=== PATIENT | male | born 1960 | race Caucasian/White ===

== ENCOUNTER → 2017-01-23 | Outpatient (CLI) | payer OTHER ==
[~2017-01-23] MED LIST: ANAPROX DS550 MG PO; ASPIRIN81 M1 PO; AUGMENTIN 875875 MG PO; AVPAK AZITHROM250 M1 PO; CLARITIN10 MG PO; CLINDAMYCIN HC300 MG PO; FLONASE ALLERG9.9 ML NAS; HYDROCODONE BIT1 T11 PO; LEVOFLOXACIN500 MG PO; MOTRIN PO; MOTRIN800 MG PO; PEN-VEE K500 MG PO; PENICILLIN VK500 MG PO; PREDNISONE10 MG PO; Peridex 473 ML473 ML PO; ROBAXIN750 MG PO; ROBITUSSIN DM 105 ML PO; TOBREX OPHTH S2.5 ML OPH; TRAMADOL HCL50 MG PO; TRIMOX500 MG PO; ULTRAM50 MG PO; VOLTAREN75 MG PO; ZITHROMAX Z PA250 MG PO
== END | disposition home or self-care (01) ==
LOC: RAD 10:06
DX: J44.1 Chronic obstructive pulmonary disease with (acute) exacerbation (principal); R06.02 Shortness of breath; Z87.891 Personal history of nicotine dependence

== ENCOUNTER 2017-05-13 16:17 | Emergency (ER) | payer OTHER ==
[~2017-05-13] VITALS: Ht 170.1 cm; Wt 59.0 kg
[2017-05-13] MEDS ORDERED: BREO ELLIPTA 21 EACH INH (16:23)
[2017-05-13] MEDS ORDERED: PROAIR HFA8.5 GM INH (16:23)
[2017-05-13] MEDS ORDERED: NORCO 10-325 T1 EACH PO (18:57)
== END 2017-05-13 19:12 | disposition home or self-care (01) ==
LOC: ED 16:17
DX: S39.012A Strain of muscle, fascia and tendon of lower back, initial encounter (principal); Z86.73 Personal history of transient ischemic attack (TIA), and cerebral infarction without residual deficits; Z88.6 Allergy status to analgesic agent; Z79.899 Other long term (current) drug therapy; X50.1XXA Overexertion from prolonged static or awkward postures, initial encounter; Y93.89 Activity, other specified; Y92.89 Other specified places as the place of occurrence of the external cause; Y99.8 Other external cause status

== ENCOUNTER 2017-09-24 08:05 | Emergency (ER) | payer OTHER ==
[~2017-09-24] VITALS: Ht 170.1 cm; Wt 58.1 kg
[~2017-09-24 08:05] MED LIST changes: +BREO ELLIPTA 21 EACH INH; +NORCO 10-325 T1 EACH PO; +PROAIR HFA8.5 GM INH
[2017-09-24] MEDS ORDERED: Motrin,Rufen800 MG PO (08:34)
[2017-09-24] MEDS ORDERED: CLINDAMYCIN150 MG PO (08:34)
[2017-09-24] MEDS ORDERED: NORCO 5-325 TA1 EACH PO (08:34)
== END 2017-09-24 08:36 | disposition home or self-care (01) ==
LOC: ED 08:05
DX: K08.89 Other specified disorders of teeth and supporting structures (principal); R68.84 Jaw pain; Z88.6 Allergy status to analgesic agent; Z79.899 Other long term (current) drug therapy; Z86.73 Personal history of transient ischemic attack (TIA), and cerebral infarction without residual deficits

== ENCOUNTER 2018-01-12 13:13 | Emergency (ER) | payer OTHER ==
[~2018-01-12] VITALS: Ht 170.1 cm; Wt 59.9 kg
[~2018-01-12 13:13] MED LIST changes: +CLINDAMYCIN150 MG PO; +Motrin,Rufen800 MG PO; +NORCO 5-325 TA1 EACH PO
[2018-01-12] MEDS ORDERED: XANAX0.5 MG PO (13:18)
[2018-01-12] MEDS ORDERED: SPIRIVA -- 3018 MCG INH (13:19)
[2018-01-12] MEDS ORDERED: Motrin,Rufen800 MG PO (13:40)
[2018-01-12] MEDS ORDERED: AUGMENTIN 875875 MG PO (13:40)
== END 2018-01-12 13:49 | disposition home or self-care (01) ==
LOC: ED 13:13
DX: K02.9 Dental caries, unspecified (principal); Z98.890 Other specified postprocedural states; Z79.899 Other long term (current) drug therapy; Z88.6 Allergy status to analgesic agent; Z88.5 Allergy status to narcotic agent

== ENCOUNTER 2018-03-22 10:04 | Emergency (ER) | payer OTHER ==
[~2018-03-22] VITALS: Wt 59.0 kg
[~2018-03-22 10:04] MED LIST changes: +SPIRIVA -- 3018 MCG INH; +XANAX0.5 MG PO
[2018-03-22] MEDS ORDERED: CLINDAMYCIN HC300 MG PO (10:15)
== END 2018-03-22 10:40 | disposition home or self-care (01) ==
LOC: ED 10:04
DX: K08.89 Other specified disorders of teeth and supporting structures (principal); Z88.5 Allergy status to narcotic agent; Z88.8 Allergy status to other drugs, medicaments and biological substances; Z79.899 Other long term (current) drug therapy

== ENCOUNTER 2018-03-24 15:49 | Emergency (ER) | payer OTHER ==
[~2018-03-24] VITALS: Wt 59.0 kg
[2018-03-24] MEDS ORDERED: NORCO 10-325 T1 EACH PO (16:12)
[2018-03-24] MEDS ORDERED: AMOXICILLIN500 M2 PO ×2 (16:12→16:16)
== END 2018-03-24 16:35 | disposition home or self-care (01) ==
LOC: ED 15:49
DX: K02.9 Dental caries, unspecified (principal); K04.7 Periapical abscess without sinus; Z88.5 Allergy status to narcotic agent; Z88.6 Allergy status to analgesic agent; Z79.899 Other long term (current) drug therapy

== ENCOUNTER → 2018-05-25 | Outpatient (CLI) | payer OTHER ==
[~2018-05-25] MED LIST changes: +AMOXICILLIN500 M2 PO
[2018-05-26 08:11] LABS: ALPHA-1-ANTITRYPSIN, SERUM 150 mg/dL (90-200)
== END | disposition home or self-care (01) ==
LOC: LAB 14:50
PROVIDERS: Internal Medicine Critical Care Medicine
DX: J44.9 Chronic obstructive pulmonary disease, unspecified (principal)

== ENCOUNTER 2019-09-08 08:29 | Emergency (ER) | payer MEDICARE, MEDICAID ==
[~2019-09-08] VITALS: Ht 170.1 cm; Wt 61.2 kg
== END 2019-09-08 10:00 | disposition home or self-care (01) ==
LOC: ED 08:29
DX: S20.211A Contusion of right front wall of thorax, initial encounter (principal); J44.9 Chronic obstructive pulmonary disease, unspecified; Z88.6 Allergy status to analgesic agent; Z79.899 Other long term (current) drug therapy; Z86.718 Personal history of other venous thrombosis and embolism; W10.8XXA Fall (on) (from) other stairs and steps, initial encounter; Y93.89 Activity, other specified; Y92.89 Other specified places as the place of occurrence of the external cause; Y99.8 Other external cause status

== ENCOUNTER 2019-10-07 11:25 | Emergency (ER) | payer MEDICARE, MEDICAID ==
[~2019-10-07] VITALS: Ht 170.1 cm; Wt 61.2 kg
--- NOTE | ~2019-10-07 | EKG ---
[place], [place] ELECTROCARDIOGRAM REPORT NAME: NASRA CUEVAS UNIT #: [id number] ROOM: DOCTOR: EPIPHANY DRAFT REPORT BIRTHDATE: [birth year] [facility] Test Date: 2019-10-07 Test Time: 12:31:53 Pat Name: NASRA CUEVAS Department: Room: Gender: [employer]: : 1960 Requested By: YANDY NAIR Order Number: [id number] Reading MD: Manan Spann MD Measurements Intervals [place] Rate: 93 P: 83 RI: 103 QRS: 68 QRSD: 77 T: 82 QT: 343 QTc: 427 Interpretive Statements Sinus rhythm Atrial premature complex Electronically Signed On 10-08-2019 4:29:55 PST by Manan Spann MD CM:EKGRPT:ELECTROCARDIOGRAM REPORT 1231 [id number] YANDY NAIR EPIPHANY DRAFT REPORT YANDY NAIR
[2019-10-07 12:24] LABS: BASO % 0.4 % (0.0-1.0); EOS # 0.1 10*3/uL (0.0-0.4); EOS % 0.7 % (1.0-4.0); HEMATOCRIT 49.1 % (42.0-52.0); HEMOGLOBIN 16.1 g/dl (14.0-18.0); LYMPH # 1.3 10*3/uL (1.3-4.4); LYMPH % 14.7 % (27.0-41.0); MEAN CORPUSCULAR HGB 32.8 pg (27.0-31.0); MEAN CORPUSCULAR HGB CONC 32.8 g/dl (33.0-37.0); MONO # 1.1 10*3/uL (0.1-1.0); MONO % 11.6 % (3.0-9.0); NEUT # 6.6 10*3/uL (2.3-7.9); NEUT % 72.3 % (47.0-73.0); PLATELET COUNT AUTOMATED 214 10*3/uL (130-400); RED BLOOD COUNT 4.91 10*6/uL (4.50-5.90); RED CELL DISTRI WIDTH 13.5 % (0-14.5); WHITE BLOOD COUNT 9.1 10*3/uL (4.8-10.8)
[2019-10-07 12:39] LABS: ALKALINE PHOSPHATASE 99 U/L (45-117); BUN 14 mg/dl (7-24); CHLORIDE 101 mmol/L (98-107); CREATININE 0.77 mg/dL (0.70-1.30); POTASSIUM 4.4 mmol/L (3.5-5.1); SGOT/AST 26 IU/L (3-35); SGPT/ALT 26 U/L (12-78); SODIUM 139 mmol/L (136-145); TOTAL PROTEIN 7.6 gm/dL (6.4-8.2)
[2019-10-07 12:42] LABS: TROPONIN I < 0.015 ng/ml (<0.045)
[2019-10-07] MEDS ORDERED: ZITHROMAX250 MG PO (13:13)
[2019-10-07] MEDS ORDERED: PREDNISONE50 MG PO (13:13)
[2019-10-07] MEDS ORDERED: TESSALON PERLE100 M1 PO (13:13)
== END 2019-10-07 13:21 | disposition home or self-care (01) ==
LOC: ED 11:25
PROVIDERS: Nurse Practitioner Family
DX: J20.9 Acute bronchitis, unspecified (principal); J44.9 Chronic obstructive pulmonary disease, unspecified; Z87.891 Personal history of nicotine dependence; Z79.2 Long term (current) use of antibiotics; Z79.899 Other long term (current) drug therapy; Z88.8 Allergy status to other drugs, medicaments and biological substances; Z86.73 Personal history of transient ischemic attack (TIA), and cerebral infarction without residual deficits

== ENCOUNTER → 2020-12-28 | Outpatient (CLI) | payer MEDICARE ==
[~2020-12-28] MED LIST changes: +PREDNISONE50 MG PO; +TESSALON PERLE100 M1 PO; +ZITHROMAX250 MG PO
== END | disposition home or self-care (01) ==
LOC: CT 14:57
PROVIDERS: ATTEND Internal Medicine Critical Care Medicine
DX: J43.9 Emphysema, unspecified (principal); J84.10 Pulmonary fibrosis, unspecified

== ENCOUNTER → 2022-03-01 | Outpatient (CLI) | payer MEDICARE ==
[2022-03-01 16:06] LABS: ABG BASE EXCESS 9.8 mmol/L (-2.0-2.0); ARTERIAL BLOOD GAS PH 7.422 (7.35-7.45); ARTERIAL BLOOD GAS PO2 87.8 (80-90)
== END | disposition home or self-care (01) ==
LOC: LAB 15:38
PROVIDERS: ATTEND Internal Medicine Critical Care Medicine
DX: J96.10 Chronic respiratory failure, unspecified whether with hypoxia or hypercapnia (principal); J43.2 Centrilobular emphysema; J45.40 Moderate persistent asthma, uncomplicated; J30.89 Other allergic rhinitis; D14.32 Benign neoplasm of left bronchus and lung

== ENCOUNTER → 2022-03-15 | Outpatient (CLI) | payer MEDICARE ==
[2022-03-16 06:08] LABS: TOTAL PROTEIN, SERUM 6.2 g/dL (6.0-8.5)
[2022-03-17 16:06] LABS: A/G RATIO 1.5 (0.7-1.7); ALBUMIN 3.7 g/dL (2.9-4.4); ALPHA-1-GLOBULIN 0.3 g/dL (0.0-0.4); ALPHA-2-GLOBULIN 0.7 g/dL (0.4-1.0); BETA GLOBULIN 0.8 g/dL (0.7-1.3); GAMMA GLOBULIN 0.7 g/dL (0.4-1.8); GLOBULIN, TOTAL 2.5 g/dL (2.2-3.9); M-SPIKE Not Observed g/dL (Not Observed)
== END | disposition home or self-care (01) ==
LOC: LAB 15:58
DX: E55.9 Vitamin D deficiency, unspecified (principal); M81.8 Other osteoporosis without current pathological fracture; Z01.812 Encounter for preprocedural laboratory examination

== ENCOUNTER → 2022-03-18 | Outpatient (CLI) | payer MEDICARE | END | disposition home or self-care (01) | LOC: LAB 13:36 | PROVIDERS: ATTEND Physician Assistant | DX: Z01.812 Encounter for preprocedural laboratory examination (principal); E55.9 Vitamin D deficiency, unspecified; M81.8 Other osteoporosis without current pathological fracture; J96.10 Chronic respiratory failure, unspecified whether with hypoxia or hypercapnia ==

== ENCOUNTER → 2022-05-20 | Outpatient (CLI) | payer MEDICARE ==
[2022-05-20 17:26] LABS: BUN 33 mg/dl (7-24); CHLORIDE 99 mmol/L (98-107); CREATININE 0.56 mg/dL (0.70-1.30); POTASSIUM 4.9 mmol/L (3.5-5.1); SODIUM 142 mmol/L (136-145)
== END | disposition home or self-care (01) ==
LOC: LAB 16:41
PROVIDERS: ATTEND Physician Assistant
DX: Z01.812 Encounter for preprocedural laboratory examination (principal); Z51.81 Encounter for therapeutic drug level monitoring; M81.8 Other osteoporosis without current pathological fracture; Z79.899 Other long term (current) drug therapy

== ENCOUNTER → 2022-05-28 | Outpatient (CLI) | payer MEDICARE ==
[2022-05-28 17:55] LABS: BUN 27 mg/dl (7-24); CHLORIDE 102 mmol/L (98-107); CREATININE 0.48 mg/dL (0.70-1.30); POTASSIUM 4.6 mmol/L (3.5-5.1); SODIUM 144 mmol/L (136-145)
== END | disposition home or self-care (01) ==
LOC: LAB 17:05
PROVIDERS: ATTEND Physician Assistant
DX: Z79.899 Other long term (current) drug therapy (principal); Z51.81 Encounter for therapeutic drug level monitoring

== ENCOUNTER 2022-10-10 04:04 | Inpatient (IN) | payer MEDICARE ==
[~2022-10-10] VITALS: Ht 170 cm; Wt 55.0 kg
[2022-10-10 04:27] VITALS: BP 136/79
[2022-10-10 04:34] LABS: BASO % 0.2 % (0.0-1.0); EOS % 0.1 % (1.0-4.0); HEMATOCRIT 46.5 % (42.0-52.0); LYMPH # 0.8 10*3/uL (1.3-4.4); LYMPH % 7.8 % (27.0-41.0); MEAN CELL VOLUME 106.4 fl (80.0-94.0); MEAN CORPUSCULAR HGB 32.7 pg (27.0-31.0); MEAN CORPUSCULAR HGB CONC 30.8 g/dl (33.0-37.0); MEAN PLATELET VOLUME 9.8 fl (9.6-12.3); MONO % 9.8 % (3.0-9.0); NEUT # 8.4 10*3/uL (2.3-7.9); NEUT % 81.4 % (47.0-73.0); PLATELET COUNT AUTOMATED 376 10*3/uL (130-400); RED BLOOD COUNT 4.37 10*6/uL (4.50-5.90); RED CELL DISTRI WIDTH 12.6 % (0-14.5); WHITE BLOOD COUNT 10.3 10*3/uL (4.8-10.8)
[2022-10-10] MEDS ORDERED: ARNUITY ELLIP100 MCG IH (04:34)
[2022-10-10] MEDS ORDERED: STIOLTO RESPIMAT4 GM INH (04:35)
[2022-10-10] MEDS ORDERED: PROVENTIL HFA6.7 GM INH (04:36)
[2022-10-10 04:44] LABS: ACT PARTIAL THROMBO TIME 27.1 SECONDS (20.0-32.1)
[2022-10-10 04:49] LABS: ALKALINE PHOSPHATASE 100 U/L (46-116); BUN 24 mg/dl (9-23); CHLORIDE 95 mmol/L (98-107); CREATININE 0.73 mg/dL (0.70-1.30); POTASSIUM 4.5 mmol/L (3.4-5.1); SGPT/ALT 30 U/L (10-49); SODIUM 143 mmol/L (136-145)
[2022-10-10 05:15] LABS: ABG BASE EXCESS 18.8 mmol/L (-2.0-2.0); ARTERIAL BLOOD GAS PH 7.213 (7.35-7.45); ARTERIAL BLOOD GAS PO2 87.9 (80-90)
[2022-10-10 06:50] VITALS: BP 124/71
[2022-10-10 07:31] LABS: ABG BASE EXCESS 9.9 mmol/L (-2.0-2.0); ARTERIAL BLOOD GAS PH 7.281 (7.35-7.45); ARTERIAL BLOOD GAS PO2 66.9 (80-90)
[2022-10-10 09:00] VITALS: BP 105/64
[2022-10-10 13:09] LABS: ABG BASE EXCESS 7.7 mmol/L (-2.0-2.0); ARTERIAL BLOOD GAS PH 7.328 (7.35-7.45); ARTERIAL BLOOD GAS PO2 66.6 (80-90)
[2022-10-10] MEDS ORDERED: FLUOXETINE HCL10 MG PO (14:20)
[2022-10-10] MEDS ORDERED: MIRTAZAPINE15 M2 PO (14:21)
[2022-10-10] MEDS ORDERED: OSTERA TABLET1 EACH PO (14:21)
[2022-10-10 15:44] VITALS: BP 125/66
[2022-10-10 20:00] VITALS: BP 129/69
[2022-10-11] VITALS: BP 118/99
[2022-10-11 03:42] VITALS: BP 133/62
[2022-10-11 07:18] LABS: HEMATOCRIT 37.8 % (42.0-52.0); LYMPH # 0.5 10*3/uL (1.3-4.4); MEAN CELL VOLUME 105.9 fl (80.0-94.0); MEAN CORPUSCULAR HGB 32.8 pg (27.0-31.0); MEAN PLATELET VOLUME 9.6 fl (9.6-12.3); MONO # 0.8 10*3/uL (0.1-1.0); MONO % 9.8 % (3.0-9.0); NEUT % 83.7 % (47.0-73.0); PLATELET COUNT AUTOMATED 360 10*3/uL (130-400); RED BLOOD COUNT 3.57 10*6/uL (4.50-5.90); RED CELL DISTRI WIDTH 12.5 % (0-14.5); WHITE BLOOD COUNT 8.3 10*3/uL (4.8-10.8)
[2022-10-11 07:40] LABS: ALKALINE PHOSPHATASE 81 U/L (46-116); BUN 17 mg/dl (9-23); CHLORIDE 97 mmol/L (98-107); CHOLESTEROL 124 mg/dL (<200); CREATININE 0.65 mg/dL (0.70-1.30); FREE T4 1.24 ng/dl (0.89-1.76); LDL CHOLESTEROL 61 mg/dL (9-159); POTASSIUM 3.8 mmol/L (3.4-5.1); SGPT/ALT 33 U/L (10-49); SODIUM 142 mmol/L (136-145); THYROID STIM HORMONE (HS) 0.143 uIU/ml (0.550-4.780); TOTAL PROTEIN 6.6 gm/dL (6.0-8.0); TRIGLYCERIDES 87 mg/dl (<150)
[2022-10-11 08:00] VITALS: BP 127/59
[2022-10-11 08:14] LABS: ABG BASE EXCESS 13.6 mmol/L (-2.0-2.0); ARTERIAL BLOOD GAS PH 7.418 (7.35-7.45); ARTERIAL BLOOD GAS PO2 72.2 (80-90)
[2022-10-11 08:20] LABS: VITAMIN D, 25-HYDROXY 83.3 ng/mL (30-100)
[2022-10-11 12:00] VITALS: BP 134/69
[2022-10-11 16:00] VITALS: BP 142/77
[2022-10-11 20:00] VITALS: BP 130/67
[2022-10-12] VITALS: BP 142/65
[2022-10-12 06:07] LABS: HEMATOCRIT 40.8 % (42.0-52.0); LYMPH # 0.7 10*3/uL (1.3-4.4); LYMPH % 8.9 % (27.0-41.0); MEAN CELL VOLUME 106.5 fl (80.0-94.0); MEAN CORPUSCULAR HGB 32.4 pg (27.0-31.0); MEAN CORPUSCULAR HGB CONC 30.4 g/dl (33.0-37.0); MEAN PLATELET VOLUME 9.6 fl (9.6-12.3); MONO # 0.6 10*3/uL (0.1-1.0); MONO % 7.7 % (3.0-9.0); NEUT # 6.4 10*3/uL (2.3-7.9); NEUT % 82.8 % (47.0-73.0); PLATELET COUNT AUTOMATED 417 10*3/uL (130-400); RED BLOOD COUNT 3.83 10*6/uL (4.50-5.90); WHITE BLOOD COUNT 7.8 10*3/uL (4.8-10.8)
[2022-10-12 06:27] LABS: BUN 21 mg/dl (9-23); CHLORIDE 101 mmol/L (98-107); CREATININE 0.62 mg/dL (0.70-1.30); SODIUM 144 mmol/L (136-145)
[2022-10-12 08:00] VITALS: BP 125/73
[2022-10-12 12:00] VITALS: BP 130/72
[2022-10-12 16:00] VITALS: BP 123/71
[2022-10-12 20:00] VITALS: BP 112/61
[2022-10-13] VITALS: BP 125/63
[2022-10-13 08:00] VITALS: BP 120/63
[2022-10-13 12:00] VITALS: BP 122/70
[2022-10-13 16:00] VITALS: BP 122/68
[2022-10-13 20:00] VITALS: BP 119/64
[2022-10-14] VITALS: BP 130/70
[2022-10-14 08:00] VITALS: BP 123/64
[2022-10-14 12:00] VITALS: BP 134/67
[2022-10-14 16:00] VITALS: BP 123/57; BP 127/71
[2022-10-14 20:00] VITALS: BP 127/66
[2022-10-15] VITALS: BP 124/72
[2022-10-15 06:35] LABS: HEMATOCRIT 39.9 % (42.0-52.0); MEAN CELL VOLUME 102.6 fl (80.0-94.0); MEAN CORPUSCULAR HGB 32.6 pg (27.0-31.0); MEAN CORPUSCULAR HGB CONC 31.8 g/dl (33.0-37.0); MEAN PLATELET VOLUME 9.6 fl (9.6-12.3); PLATELET COUNT AUTOMATED 406 10*3/uL (130-400); RED BLOOD COUNT 3.89 10*6/uL (4.50-5.90); WHITE BLOOD COUNT 16.3 10*3/uL (4.8-10.8)
[2022-10-15 06:36] LABS: BUN 22 mg/dl (9-23); CHLORIDE 101 mmol/L (98-107); CREATININE 0.42 mg/dL (0.70-1.30); MANUAL DIFF REFLEX YES; POTASSIUM 3.8 mmol/L (3.4-5.1); SODIUM 143 mmol/L (136-145)
[2022-10-15 07:22] LABS: PLATELET SUFFICIENCY HIGH (NORMAL); POLYCHROMASIA SLIGHT; TOTAL CELLS COUNTED 100 #CELLS; TOXIC GRANULATION SLIGHT
[2022-10-15 08:00] VITALS: BP 119/66
[2022-10-15 11:31] VITALS: BP 117/66
[2022-10-15 16:00] VITALS: BP 115/63
[2022-10-15 20:00] VITALS: BP 134/68
[2022-10-16] VITALS: BP 111/73
[2022-10-16 06:55] LABS: BASO % 0.1 % (0.0-1.0); EOS # 0.3 10*3/uL (0.0-0.4); EOS % 2.4 % (1.0-4.0); HEMATOCRIT 40.2 % (42.0-52.0); LYMPH # 1.5 10*3/uL (1.3-4.4); LYMPH % 12.9 % (27.0-41.0); MEAN CELL VOLUME 103.1 fl (80.0-94.0); MEAN CORPUSCULAR HGB 32.6 pg (27.0-31.0); MEAN CORPUSCULAR HGB CONC 31.6 g/dl (33.0-37.0); MEAN PLATELET VOLUME 9.7 fl (9.6-12.3); MONO # 1.4 10*3/uL (0.1-1.0); MONO % 12.3 % (3.0-9.0); NEUT # 8.5 10*3/uL (2.3-7.9); PLATELET COUNT AUTOMATED 371 10*3/uL (130-400); RED CELL DISTRI WIDTH 13.1 % (0-14.5); WHITE BLOOD COUNT 11.8 10*3/uL (4.8-10.8)
[2022-10-16 07:08] LABS: BUN 22 mg/dl (9-23); CHLORIDE 96 mmol/L (98-107); CREATININE 0.49 mg/dL (0.70-1.30); POTASSIUM 3.5 mmol/L (3.4-5.1); SODIUM 141 mmol/L (136-145)
[2022-10-16 08:00] VITALS: BP 112/58
[2022-10-16 11:30] VITALS: BP 121/66
[2022-10-16 16:00] VITALS: BP 118/72
[2022-10-16 20:00] VITALS: BP 120/71
[2022-10-17] VITALS: BP 124/68
[2022-10-17 06:37] LABS: BASO % 0.1 % (0.0-1.0); EOS # 0.3 10*3/uL (0.0-0.4); EOS % 2.1 % (1.0-4.0); HEMATOCRIT 45.1 % (42.0-52.0); LYMPH # 1.6 10*3/uL (1.3-4.4); LYMPH % 12.3 % (27.0-41.0); MEAN CELL VOLUME 104.2 fl (80.0-94.0); MEAN CORPUSCULAR HGB 32.6 pg (27.0-31.0); MEAN CORPUSCULAR HGB CONC 31.3 g/dl (33.0-37.0); MEAN PLATELET VOLUME 10.4 fl (9.6-12.3); MONO # 1.3 10*3/uL (0.1-1.0); MONO % 10.2 % (3.0-9.0); NEUT # 9.5 10*3/uL (2.3-7.9); NEUT % 74.8 % (47.0-73.0); PLATELET COUNT AUTOMATED 405 10*3/uL (130-400); RED BLOOD COUNT 4.33 10*6/uL (4.50-5.90); RED CELL DISTRI WIDTH 13.1 % (0-14.5); WHITE BLOOD COUNT 12.8 10*3/uL (4.8-10.8)
[2022-10-17 07:06] LABS: BUN 23 mg/dl (9-23); CHLORIDE 99 mmol/L (98-107); CREATININE 0.68 mg/dL (0.70-1.30); POTASSIUM 4.2 mmol/L (3.4-5.1); SODIUM 140 mmol/L (136-145)
[2022-10-17 08:00] VITALS: BP 120/67
[2022-10-17 12:00] VITALS: BP 115/65
[2022-10-17 16:00] VITALS: BP 116/71
[2022-10-17 20:00] VITALS: BP 127/71
[2022-10-18] VITALS: BP 146/73
[2022-10-18 07:00] LABS: BASO % 0.1 % (0.0-1.0); EOS # 0.2 10*3/uL (0.0-0.4); EOS % 2.2 % (1.0-4.0); HEMATOCRIT 45.7 % (42.0-52.0); LYMPH # 1.4 10*3/uL (1.3-4.4); LYMPH % 13.5 % (27.0-41.0); MEAN CELL VOLUME 104.1 fl (80.0-94.0); MEAN CORPUSCULAR HGB 32.3 pg (27.0-31.0); MEAN CORPUSCULAR HGB CONC 31.1 g/dl (33.0-37.0); MONO # 1.1 10*3/uL (0.1-1.0); NEUT # 7.5 10*3/uL (2.3-7.9); NEUT % 72.8 % (47.0-73.0); PLATELET COUNT AUTOMATED 417 10*3/uL (130-400); RED BLOOD COUNT 4.39 10*6/uL (4.50-5.90); RED CELL DISTRI WIDTH 13.2 % (0-14.5); WHITE BLOOD COUNT 10.3 10*3/uL (4.8-10.8)
[2022-10-18 07:15] LABS: BUN 22 mg/dl (9-23); CHLORIDE 101 mmol/L (98-107); CREATININE 0.69 mg/dL (0.70-1.30); SODIUM 140 mmol/L (136-145)
[2022-10-18 08:00] VITALS: BP 117/81
[2022-10-18 12:00] VITALS: BP 113/68
[2022-10-18 16:00] VITALS: BP 113/69
[2022-10-18 20:00] VITALS: BP 119/67
[2022-10-19] VITALS: BP 103/71
[2022-10-19 05:55] LABS: BUN 19 mg/dl (9-23); CHLORIDE 102 mmol/L (98-107); CREATININE 0.68 mg/dL (0.70-1.30); SODIUM 143 mmol/L (136-145)
[2022-10-19 06:34] LABS: BASO % 0.1 % (0.0-1.0); EOS # 0.1 10*3/uL (0.0-0.4); EOS % 1.2 % (1.0-4.0); HEMATOCRIT 43.5 % (42.0-52.0); LYMPH # 1.4 10*3/uL (1.3-4.4); MEAN CELL VOLUME 104.3 fl (80.0-94.0); MEAN CORPUSCULAR HGB 32.9 pg (27.0-31.0); MEAN CORPUSCULAR HGB CONC 31.5 g/dl (33.0-37.0); MEAN PLATELET VOLUME 10.3 fl (9.6-12.3); MONO # 1.3 10*3/uL (0.1-1.0); MONO % 13.2 % (3.0-9.0); NEUT # 7.1 10*3/uL (2.3-7.9); NEUT % 70.6 % (47.0-73.0); PLATELET COUNT AUTOMATED 454 10*3/uL (130-400); RED BLOOD COUNT 4.17 10*6/uL (4.50-5.90); RED CELL DISTRI WIDTH 13.2 % (0-14.5); WHITE BLOOD COUNT 10.1 10*3/uL (4.8-10.8)
[2022-10-19 08:00] VITALS: BP 125/63
[2022-10-19 12:00] VITALS: BP 117/63
[2022-10-19 16:00] VITALS: BP 122/64
[2022-10-19 20:00] VITALS: BP 118/72
[2022-10-20] VITALS: BP 127/68
[2022-10-20 08:00] VITALS: BP 125/59
[2022-10-20 12:00] VITALS: BP 126/59
[2022-10-20 16:00] VITALS: BP 130/67
[2022-10-20 20:00] VITALS: BP 128/62
[2022-10-21] VITALS: BP 126/63
[2022-10-21 08:00] VITALS: BP 126/74
[2022-10-21 12:00] VITALS: BP 116/63
[2022-10-21] MEDS ORDERED: PREDNISONE10 MG PO (12:36)
== END 2022-10-21 14:29 | disposition home health service (06) | DRG 871 ==
LOC: ED 04:04 → EDHOLD 05:36 → 4E 05:36
PROVIDERS: Emergency Medicine; Internal Medicine; Internal Medicine Critical Care Medicine; Student in an Organized Health Care Education/Training Program; ADMIT Internal Medicine; ATTEND Internal Medicine
PROC: 5A09357 Assistance with Respiratory Ventilation, Less than 24 Consecutive Hours, Continuous Positive Airway Pressure (ICD-10-PCS; principal; 2022-10-12)
PROC: 5A09357 Assistance with Respiratory Ventilation, Less than 24 Consecutive Hours, Continuous Positive Airway Pressure (ICD-10-PCS; 2022-10-14)
DX: A41.9 Sepsis, unspecified organism (principal); G93.41 Metabolic encephalopathy; J15.6 Pneumonia due to other Gram-negative bacteria; J96.21 Acute and chronic respiratory failure with hypoxia; J96.22 Acute and chronic respiratory failure with hypercapnia; E87.3 Alkalosis; Z20.822 Contact with and (suspected) exposure to COVID-19; F41.9 Anxiety disorder, unspecified; R65.20 Severe sepsis without septic shock; D75.89 Other specified diseases of blood and blood-forming organs; E87.8 Other disorders of electrolyte and fluid balance, not elsewhere classified; E83.52 Hypercalcemia; R73.9 Hyperglycemia, unspecified; D75.839 Thrombocytosis, unspecified; D53.9 Nutritional anemia, unspecified; J20.9 Acute bronchitis, unspecified; J43.9 Emphysema, unspecified; F41.1 Generalized anxiety disorder; Z88.8 Allergy status to other drugs, medicaments and biological substances; Z82.49 Family history of ischemic heart disease and other diseases of the circulatory system; Z83.3 Family history of diabetes mellitus; Z86.73 Personal history of transient ischemic attack (TIA), and cerebral infarction without residual deficits; Z82.3 Family history of stroke

== ENCOUNTER → 2023-01-01 | Outpatient (CLI) | payer MEDICARE ==
[~2023-01-01] MED LIST changes: +ARNUITY ELLIP100 MCG IH; +FLUOXETINE HCL10 MG PO; +MIRTAZAPINE15 M2 PO; +OSTERA TABLET1 EACH PO; +PROVENTIL HFA6.7 GM INH; +STIOLTO RESPIMAT4 GM INH
== END | disposition home or self-care (01) ==
LOC: RAD 13:55
PROVIDERS: ATTEND Nurse Practitioner Family
DX: M25.511 Pain in right shoulder (principal)

== ENCOUNTER 2025-08-30 09:38 | Inpatient (IN) | payer OTHER ==
[~2025-08-30] VITALS: Ht 162.6 cm; Wt 57.1 kg
[2025-08-30] VITALS (48 sets, daily range): BP systolic 40–151; BP diastolic 0–86
[2025-08-30] MEDS ORDERED: SODIUM CHLORIDE 0.9% 1,000 ML IV ONE ×3 (09:45)
[2025-08-30] MEDS ORDERED: PROPOFOL 50 ML IV SCH (09:50)
[2025-08-30] MEDS ORDERED: ETOMIDATE 20 MG/10 ML VIAL IV ONE ×2 (09:50→17:31)
[2025-08-30] MEDS ORDERED: ROCURONIUM BROMIDE 50 MG/5 ML SYRINGE IV ONE ×2 (09:50→17:31)
[2025-08-30] MEDS ORDERED: AZITHROMYCIN 250 ML IV ONE (10:20)
[2025-08-30 10:28] LABS: MEAN CELL VOLUME 103.6 fl (80.0-94.0); MEAN CORPUSCULAR HGB 30.8 pg (27.0-31.0); MEAN PLATELET VOLUME 10.4 fl (9.6-12.3); NUCLEATED RED BLOOD CELL 0.0 % (0.0-0.0); NUCLEATED RED BLOOD CELL 0.0 10*3/uL (0.0-0.0); PLATELET COUNT AUTOMATED 284 10*3/uL (130-400); RED CELL DISTRI WIDTH 13.6 % (0-14.5)
[2025-08-30 10:31] LABS: MANUAL DIFF REFLEX YES
[2025-08-30 10:46] LABS: BUN 25 mg/dl (9-23)
[2025-08-30 11:04] LABS: PLATELET SUFFICIENCY NORMAL (NORMAL); STOMATOCYTE FEW
[2025-08-30] MEDS ORDERED: MAGNESIUM400 MG PO (11:20)
[2025-08-30] MEDS ORDERED: COLACE100 MG PO (11:20)
[2025-08-30] MEDS ORDERED: MELOXICAM7.5 MG PO (11:21)
[2025-08-30] MEDS ORDERED: LOPRESSOR25 MG PO (11:22)
[2025-08-30] MEDS ORDERED: MELATONIN5 M5 PO (11:22)
[2025-08-30] MEDS ORDERED: PROTONIX40 MG PO (11:23)
[2025-08-30] MEDS ORDERED: THEOPHYLLINE300 M2 PO (11:24)
[2025-08-30] MEDS ORDERED: TRELEGY ELLIPT1 EACH INH (11:25)
[2025-08-30] MEDS ORDERED: VITAMIN D3125 MC1 PO (11:36)
[2025-08-30] MEDS ORDERED: ALBUTEROL2.5 MG/0.5 INH (11:37)
[2025-08-30 11:51] LABS: ABG BASE EXCESS -0.5 mmol/L (-2.0-3.0); ABG O2 SATURATION 99.2 % (94.0-98.0); ARTERIAL BLOOD GAS PH 7.318 (7.350-7.450); ARTERIAL BLOOD GAS PO2 236.9 mmHg (83.0-108.0)
[2025-08-30] MEDS ORDERED: NOREPINEPHRINE BITARTRATE/D5W 250 ML IV ONE ×2 (12:04→14:18)
[2025-08-30] MEDS ORDERED: NOREPINEPHRINE BITARTRATE/D5W 250 ML IV SCH (14:15)
[2025-08-30] MEDS ORDERED: Albuterol Sulf/Ipratropium 3 ML VIAL NEB SCH (14:35)
[2025-08-30] MEDS ORDERED: SODIUM CHLORIDE 0.9% 1,000 ML IV SCH (14:35)
[2025-08-30] MEDS ORDERED: LEVOFLOXACIN 100 ML IV SCH (15:00)
[2025-08-30 15:36] LABS: BILIRUBIN Negative (Negative); BLOOD 1+ (Negative); CLARITY Cloudy (Clear); COLOR Dark Yellow (Yellow); KETONE Trace (Negative); NITRITE Negative (Negative); PH 6.0 (4.5-8.0); SPECIFIC GRAVITY 1.020 (1.001-1.030); UROBILINOGEN 1.0 E.U./dl (0.0-1.0)
[2025-08-30] MEDS ORDERED: FLUARIX IM (15:39)
[2025-08-30] MEDS ORDERED: PREVNAR 20 SYR0.5 ML IM (15:41)
[2025-08-30] MEDS ORDERED: VITAMIN D250 MC1 PO (15:42)
[2025-08-30] MEDS ORDERED: IBU800 M1 PO (15:45)
[2025-08-30 15:47] LABS: URINE AMPHETAMINES Negative (1000ng/ml); URINE BARBITURATES Negative (200ng/ml); URINE BENZODIAZEPINES Positive (200ng/ml); URINE CANNABINOIDS (THC) Negative (50ng/ml); URINE COCAINE Negative (300ng/ml); URINE METHADONE Negative (300ng/ml); URINE OPIATES Negative (300ng/ml); URINE PHENCYCLIDINE Negative (25ng/ml)
[2025-08-30 15:51] LABS: LEUKO ESTERASE Trace (Negative)
[2025-08-30 15:52] LABS: EPITHELIAL CELLS 21-30; WBC 16-20 wbc/hpf (0-5)
[2025-08-30 15:53] LABS: BACTERIA 3+; HYALINE CAST 0-2; MUCOUS 1+
[2025-08-30 16:54] LABS: ABG O2 SATURATION 89.0 % (94.0-98.0); ARTERIAL BLOOD GAS PO2 59.5 mmHg (83.0-108.0)
[2025-08-30 16:59] LABS: ABG BASE EXCESS -3.2 mmol/L (-2.0-3.0); ARTERIAL BLOOD GAS PH 7.237 (7.350-7.450)
[2025-08-30] MEDS ORDERED: ACETAMINOPHEN 325 MG/10.15 ML UDC NG PRN (20:30)
[2025-08-30] MEDS ORDERED: VASOPRESSIN 100 ML IV SCH (23:10)
[2025-08-30] MEDS ORDERED: VASOPRESSIN 100 ML IV ONE (23:40)
[2025-08-31] VITALS (91 sets, daily range): BP systolic 65–143; BP diastolic 40–80
[2025-08-31] MEDS ORDERED: Hydrocortisone Sodium Succin 250 MG/2 ML VIAL IV ONE (00:45)
[2025-08-31] MEDS ORDERED: EPINEPHrine IN 0.9 % SOD CHLOR 250 ML IV SCH (01:45)
[2025-08-31 04:32] LABS: MANUAL DIFF REFLEX YES; MEAN CELL VOLUME 101.1 fl (80.0-94.0); MEAN CORPUSCULAR HGB 31.1 pg (27.0-31.0); MEAN PLATELET VOLUME 10.4 fl (9.6-12.3); NUCLEATED RED BLOOD CELL 0.0 % (0.0-0.0); NUCLEATED RED BLOOD CELL 0.0 10*3/uL (0.0-0.0); PLATELET COUNT AUTOMATED 245 10*3/uL (130-400); RED CELL DISTRI WIDTH 14.0 % (0-14.5)
[2025-08-31 04:57] LABS: PLATELET SUFFICIENCY NORMAL (NORMAL)
[2025-08-31 05:01] LABS: BUN 27 mg/dl (9-23); SGPT/ALT 8 U/L (5-49)
[2025-08-31] MEDS ORDERED: Hydrocortisone Sodium Succin 100 MG/2 ML VIAL IV SCH (06:00)
[2025-08-31] MEDS ORDERED: Hydrocortisone Sodium Succin 100 MG/2 ML VIAL IV ONE (06:40)
[2025-08-31 08:29] LABS: ABG O2 SATURATION 94.5 % (94.0-98.0); ARTERIAL BLOOD GAS PO2 84.1 mmHg (83.0-108.0)
[2025-08-31 08:33] LABS: ABG BASE EXCESS -6.4 mmol/L (-2.0-3.0); ARTERIAL BLOOD GAS PH 7.224 (7.350-7.450)
[2025-08-31 12:37] LABS: ABG BASE EXCESS -4.3 mmol/L (-2.0-3.0); ABG O2 SATURATION 96.5 % (94.0-98.0); ARTERIAL BLOOD GAS PH 7.321 (7.350-7.450); ARTERIAL BLOOD GAS PO2 87.3 mmHg (83.0-108.0)
[2025-08-31] MEDS ORDERED: Vancomycin Hydrochloride 1,000 MG VIAL IV SCH (16:15)
[2025-08-31] MEDS ORDERED: VANCOMYCIN/WATER FOR INJ (PEG) 150 ML IV SCH (17:00)
[2025-09-01] VITALS (92 sets, daily range): BP systolic 94–157; BP diastolic 53–85
[2025-09-01 08:02] LABS: MEAN CORPUSCULAR HGB 30.6 pg (27.0-31.0); MEAN PLATELET VOLUME 10.6 fl (9.6-12.3); NUCLEATED RED BLOOD CELL 0.0 % (0.0-0.0); NUCLEATED RED BLOOD CELL 0.0 10*3/uL (0.0-0.0); PLATELET COUNT AUTOMATED 203 10*3/uL (130-400); RED CELL DISTRI WIDTH 14.2 % (0-14.5)
[2025-09-01 08:11] LABS: MANUAL DIFF REFLEX YES; MEAN CELL VOLUME 94.9 fl (80.0-94.0)
[2025-09-01 08:23] LABS: PLATELET SUFFICIENCY NORMAL (NORMAL)
[2025-09-01 08:24] LABS: ABG BASE EXCESS 0.5 mmol/L (-2.0-3.0); ABG O2 SATURATION 97.7 % (94.0-98.0); ARTERIAL BLOOD GAS PH 7.42 (7.350-7.450); ARTERIAL BLOOD GAS PO2 89.9 mmHg (83.0-108.0)
[2025-09-01 08:25] LABS: DOHLE BODIES FEW
[2025-09-01 08:29] LABS: BUN 30 mg/dl (9-23); SGPT/ALT 23 U/L (5-49)
[2025-09-01] MEDS ORDERED: POTASSIUM CL D5/.45NS SOL. 1,000 ML IV SCH (09:05)
[2025-09-01] MEDS ORDERED: DEXTROSE 10 % IN WATER 250 ML IV PRN (09:05)
[2025-09-01] MEDS ORDERED: FUROSEMIDE 20 MG/2 ML VIAL IV ONE (09:05)
[2025-09-01] MEDS ORDERED: LISINOPRIL 2.5 MG TAB PO SCH (10:00)
[2025-09-01] MEDS ORDERED: Hydrocortisone Sodium Succin 100 MG/2 ML VIAL IV SCH (10:00)
[2025-09-01] MEDS ORDERED: INSULIN REGULAR, HUMAN 1 UNIT/0.01 ML SC SCH (11:30)
[2025-09-01 13:35] LABS: ABG BASE EXCESS 2.5 mmol/L (-2.0-3.0); ABG O2 SATURATION 96.9 % (94.0-98.0); ARTERIAL BLOOD GAS PH 7.37 (7.350-7.450); ARTERIAL BLOOD GAS PO2 88.3 mmHg (83.0-108.0)
[2025-09-01] MEDS ORDERED: ALPRAZolam 0.5 MG TAB PO PRN (16:15)
[2025-09-01] MEDS ORDERED: POTASSIUM CHLORIDE 100 ML IV SCH (20:00)
[2025-09-02] VITALS (74 sets, daily range): BP systolic 82–128; BP diastolic 53–68
[2025-09-02 05:18] LABS: BUN 29 mg/dl (9-23); SGPT/ALT 17 U/L (5-49)
[2025-09-02 05:58] LABS: MEAN CELL VOLUME 96.7 fl (80.0-94.0); MEAN CORPUSCULAR HGB 31.0 pg (27.0-31.0); MEAN PLATELET VOLUME 11.0 fl (9.6-12.3); NUCLEATED RED BLOOD CELL 0.0 % (0.0-0.0); NUCLEATED RED BLOOD CELL 0.0 10*3/uL (0.0-0.0); PLATELET COUNT AUTOMATED 212 10*3/uL (130-400); RED CELL DISTRI WIDTH 14.4 % (0-14.5)
[2025-09-02 06:00] LABS: MANUAL DIFF REFLEX YES
[2025-09-02 06:42] LABS: DOHLE BODIES FEW; PLATELET SUFFICIENCY NORMAL (NORMAL)
[2025-09-02] MEDS ORDERED: POTASSIUM CHLORIDE 20 MEQ TAB PO ONE (07:55)
[2025-09-02 08:22] LABS: ABG BASE EXCESS 2.6 mmol/L (-2.0-3.0); ABG O2 SATURATION 96.5 % (94.0-98.0); ARTERIAL BLOOD GAS PH 7.288 (7.350-7.450); ARTERIAL BLOOD GAS PO2 89.2 mmHg (83.0-108.0)
[2025-09-02] MEDS ORDERED: Hydrocortisone Sodium Succin 100 MG/2 ML VIAL IV SCH ×2 (10:00→14:40)
[2025-09-02] MEDS ORDERED: POTASSIUM CHLORIDE 20 MEQ TAB PO SCH (10:00)
[2025-09-02] MEDS ORDERED: METOPROLOL SUCCINATE XR 25 MG TAB PO SCH (10:00)
[2025-09-02] MEDS ORDERED: SPIRONOLACTONE 25 MG TAB PO SCH (10:00)
[2025-09-03] VITALS (11 sets, daily range): BP systolic 96–123; BP diastolic 55–67
[2025-09-03 05:42] LABS: BUN 32 mg/dl (9-23)
[2025-09-03 06:24] LABS: MEAN CELL VOLUME 99.7 fl (80.0-94.0); MEAN CORPUSCULAR HGB 30.7 pg (27.0-31.0); MEAN PLATELET VOLUME 10.6 fl (9.6-12.3); NUCLEATED RED BLOOD CELL 0.0 % (0.0-0.0); NUCLEATED RED BLOOD CELL 0.0 10*3/uL (0.0-0.0); PLATELET COUNT AUTOMATED 190 10*3/uL (130-400); RED CELL DISTRI WIDTH 15.6 % (0-14.5)
[2025-09-03 06:30] LABS: MANUAL DIFF REFLEX YES
[2025-09-03 07:12] LABS: STOMATOCYTE FEW
[2025-09-03 07:13] LABS: PLATELET SUFFICIENCY NORMAL (NORMAL)
[2025-09-03 07:27] LABS: ABG O2 SATURATION 95.9 % (94.0-98.0); ARTERIAL BLOOD GAS PH 7.338 (7.350-7.450); ARTERIAL BLOOD GAS PO2 83.3 mmHg (83.0-108.0)
[2025-09-03 07:31] LABS: ABG BASE EXCESS 7.3 mmol/L (-2.0-3.0)
[2025-09-03] MEDS ORDERED: VANCOMYCIN/WATER FOR INJ (PEG) 150 ML IV SCH (10:00)
[2025-09-03] MEDS ORDERED: FUROSEMIDE 20 MG/2 ML VIAL IV ONE (14:30)
[2025-09-04] VITALS: BP 114/46
[2025-09-04 04:00] VITALS: BP 111/50
[2025-09-04 08:00] VITALS: BP 117/59
[2025-09-04 09:36] LABS: MEAN CORPUSCULAR HGB 30.3 pg (27.0-31.0); MEAN PLATELET VOLUME 10.2 fl (9.6-12.3); NUCLEATED RED BLOOD CELL 0.0 10*3/uL (0.0-0.0); NUCLEATED RED BLOOD CELL 0.2 % (0.0-0.0); PLATELET COUNT AUTOMATED 240 10*3/uL (130-400); RED CELL DISTRI WIDTH 15.6 % (0-14.5)
[2025-09-04 09:40] LABS: MANUAL DIFF REFLEX YES; MEAN CELL VOLUME 103.3 fl (80.0-94.0)
[2025-09-04 09:49] LABS: BUN 28 mg/dl (9-23)
[2025-09-04 09:50] LABS: PLATELET SUFFICIENCY NORMAL (NORMAL); STOMATOCYTE FEW
[2025-09-04] MEDS ORDERED: FOAM BANDAGE 5X5 T ONE (15:25)
[2025-09-04 16:00] VITALS: BP 108/61
[2025-09-04 20:00] VITALS: BP 126/63
[2025-09-05] VITALS: BP 131/69
[2025-09-05 04:00] VITALS: BP 104/57
[2025-09-05 08:00] VITALS: BP 117/70
[2025-09-05] MEDS ORDERED: DEXTROSE 5% 1,000 ML IV SCH (08:25)
[2025-09-05 08:44] LABS: MEAN CELL VOLUME 104.1 fl (80.0-94.0); MEAN CORPUSCULAR HGB 30.4 pg (27.0-31.0); MEAN PLATELET VOLUME 9.8 fl (9.6-12.3); NUCLEATED RED BLOOD CELL 0.0 % (0.0-0.0); NUCLEATED RED BLOOD CELL 0.0 10*3/uL (0.0-0.0); PLATELET COUNT AUTOMATED 256 10*3/uL (130-400); RED CELL DISTRI WIDTH 15.0 % (0-14.5)
[2025-09-05 08:46] LABS: MANUAL DIFF REFLEX YES
[2025-09-05 09:12] LABS: STOMATOCYTE FEW
[2025-09-05 09:13] LABS: PLATELET SUFFICIENCY NORMAL (NORMAL)
[2025-09-05 09:46] LABS: BUN 21 mg/dl (9-23)
[2025-09-05] MEDS ORDERED: METOPROLOL SUCCINATE XR 25 MG TAB PO SCH (10:00)
[2025-09-05 12:00] VITALS: BP 111/69
[2025-09-05 16:00] VITALS: BP 128/65
[2025-09-05 20:00] VITALS: BP 112/64
[2025-09-05] MEDS ORDERED: Hydrocortisone Sodium Succin 100 MG/2 ML VIAL IV SCH (22:00)
[2025-09-06] VITALS: BP 96/55
[2025-09-06 05:30] LABS: BUN 18 mg/dl (9-23)
[2025-09-06 06:00] LABS: BASO # 0.0 10*3/uL (0.0-0.1); BASO % 0.2 % (0.0-1.0); EOS # 0.0 10*3/uL (0.0-0.4); EOS % 0.2 % (1.0-4.0); MEAN CELL VOLUME 101.5 fl (80.0-94.0); MEAN CORPUSCULAR HGB 30.7 pg (27.0-31.0); MEAN PLATELET VOLUME 10.0 fl (9.6-12.3); MONO # 0.8 10*3/uL (0.1-1.0); MONO % 5.5 % (3.0-9.0); NEUT # 12.1 10*3/uL (2.3-7.9); NEUT % 86.1 % (47.0-73.0); NUCLEATED RED BLOOD CELL 0.0 % (0.0-0.0); NUCLEATED RED BLOOD CELL 0.0 10*3/uL (0.0-0.0); PLATELET COUNT AUTOMATED 267 10*3/uL (130-400); RED CELL DISTRI WIDTH 14.6 % (0-14.5)
[2025-09-06 08:00] VITALS: BP 127/64
[2025-09-06] MEDS ORDERED: ACETAZOLAMIDE250 MG PO (08:22)
[2025-09-06] MEDS ORDERED: acetaZOLAMIDE 250 MG TAB PO SCH (10:00)
[2025-09-06 11:46] VITALS: BP 106/64
[2025-09-06 16:00] VITALS: BP 95/73
[2025-09-06 20:00] VITALS: BP 133/56
[2025-09-07] VITALS: BP 103/62
[2025-09-07 08:00] VITALS: BP 124/59
[2025-09-07] MEDS ORDERED: FUROSEMIDE 20 MG/2 ML VIAL IV ONE (08:50)
[2025-09-07 09:47] LABS: BUN 20 mg/dl (9-23)
[2025-09-07 12:00] VITALS: BP 95/65
[2025-09-07] MEDS ORDERED: POTASSIUM CHLORIDE 20 MEQ TAB PO SCH ×3 (12:00→20:00)
[2025-09-07 16:00] VITALS: BP 110/61
[2025-09-07] MEDS ORDERED: INSULIN REGULAR, HUMAN 1 UNIT/0.01 ML SC SCH (16:30)
[2025-09-07] MEDS ORDERED: VANCOMYCIN/WATER FOR INJ (PEG) 150 ML IV SCH (18:00)
[2025-09-07] MEDS ORDERED: HEEL PROTECTOR DEVICE ONE (18:28)
[2025-09-07 20:00] VITALS: BP 101/59
[2025-09-08] VITALS: BP 101/61
[2025-09-08] MEDS ORDERED: FOAM BANDAGE 1 EACH BANDAGE T ONE (06:01)
[2025-09-08 06:32] LABS: BUN 25 mg/dl (9-23)
[2025-09-08 08:00] VITALS: BP 114/63
[2025-09-08] MEDS ORDERED: EMPAGLIFLOZIN 10 MG TABLET PO SCH (10:00)
[2025-09-08 12:00] VITALS: BP 95/58
[2025-09-08 16:00] VITALS: BP 112/58
[2025-09-08 20:00] VITALS: BP 110/63
[2025-09-09] VITALS: BP 116/63
[2025-09-09 08:00] VITALS: BP 116/60
[2025-09-09 12:00] VITALS: BP 106/63
== END 2025-09-09 14:00 | DRG 871 ==
LOC: ED 09:38 → EDHOLD 11:24 → ICCU 11:24 → 5E 09-06 09:38
PROVIDERS: Emergency Medicine; Internal Medicine; Internal Medicine Critical Care Medicine; ADMIT Internal Medicine; ATTEND Internal Medicine
PROC: 02HV33Z Insertion of Infusion Device into Superior Vena Cava, Percutaneous Approach (ICD-10-PCS; principal; 2025-08-30)
PROC: B548ZZA Ultrasonography of Superior Vena Cava, Guidance (ICD-10-PCS; 2025-08-30)
PROC: 0BH17EZ Insertion of Endotracheal Airway into Trachea, Via Natural or Artificial Opening (ICD-10-PCS; 2025-08-30)
PROC: 5A1945Z Respiratory Ventilation, 24-96 Consecutive Hours (ICD-10-PCS; 2025-08-30)
PROC: 5A09357 Assistance with Respiratory Ventilation, Less than 24 Consecutive Hours, Continuous Positive Airway Pressure (ICD-10-PCS; 2025-09-02)
PROC: 5A09357 Assistance with Respiratory Ventilation, Less than 24 Consecutive Hours, Continuous Positive Airway Pressure (ICD-10-PCS; 2025-09-03)
PROC: 5A09357 Assistance with Respiratory Ventilation, Less than 24 Consecutive Hours, Continuous Positive Airway Pressure (ICD-10-PCS; 2025-09-04)
PROC: 5A09357 Assistance with Respiratory Ventilation, Less than 24 Consecutive Hours, Continuous Positive Airway Pressure (ICD-10-PCS; 2025-09-05)
PROC: 5A09357 Assistance with Respiratory Ventilation, Less than 24 Consecutive Hours, Continuous Positive Airway Pressure (ICD-10-PCS; 2025-09-06)
PROC: 5A09357 Assistance with Respiratory Ventilation, Less than 24 Consecutive Hours, Continuous Positive Airway Pressure (ICD-10-PCS; 2025-09-07)
PROC: 5A09357 Assistance with Respiratory Ventilation, Less than 24 Consecutive Hours, Continuous Positive Airway Pressure (ICD-10-PCS; 2025-09-08)
PROC: 5A09357 Assistance with Respiratory Ventilation, Less than 24 Consecutive Hours, Continuous Positive Airway Pressure (ICD-10-PCS; 2025-09-09)
DX: A41.9 Sepsis, unspecified organism (principal); I21.A1 Myocardial infarction type 2; J15.212 Pneumonia due to Methicillin resistant Staphylococcus aureus; R65.21 Severe sepsis with septic shock; J15.9 Unspecified bacterial pneumonia; J96.21 Acute and chronic respiratory failure with hypoxia; J96.22 Acute and chronic respiratory failure with hypercapnia; J44.0 Chronic obstructive pulmonary disease with (acute) lower respiratory infection; E87.20 Acidosis, unspecified; J44.1 Chronic obstructive pulmonary disease with (acute) exacerbation; E87.0 Hyperosmolality and hypernatremia; E87.3 Alkalosis; E87.6 Hypokalemia; Z20.822 Contact with and (suspected) exposure to COVID-19; F41.1 Generalized anxiety disorder; E86.9 Volume depletion, unspecified; E87.8 Other disorders of electrolyte and fluid balance, not elsewhere classified; R73.9 Hyperglycemia, unspecified; E78.5 Hyperlipidemia, unspecified; S40.022A Contusion of left upper arm, initial encounter; R62.7 Adult failure to thrive; J43.9 Emphysema, unspecified; I10 Essential (primary) hypertension; Z88.8 Allergy status to other drugs, medicaments and biological substances; Z91.09 Other allergy status, other than to drugs and biological substances; Z79.899 Other long term (current) drug therapy; Z79.01 Long term (current) use of anticoagulants; Z79.2 Long term (current) use of antibiotics; Z87.891 Personal history of nicotine dependence; Z82.49 Family history of ischemic heart disease and other diseases of the circulatory system; Z83.3 Family history of diabetes mellitus; Z80.8 Family history of malignant neoplasm of other organs or systems; Z82.3 Family history of stroke; Z86.73 Personal history of transient ischemic attack (TIA), and cerebral infarction without residual deficits; X58.XXXA Exposure to other specified factors, initial encounter; Y93.89 Activity, other specified; Y92.89 Other specified places as the place of occurrence of the external cause; Y99.8 Other external cause status

== ENCOUNTER 2025-09-28 21:33 | Emergency (ER) | payer OTHER ==
[~2025-09-28] VITALS: Ht 167.6 cm; Wt 68.0 kg
[~2025-09-28 21:33] MED LIST changes: +ACETAZOLAMIDE250 MG PO; +ALBUTEROL2.5 MG/0.5 INH; +COLACE100 MG PO; +FLUARIX IM; +IBU800 M1 PO; +LOPRESSOR25 MG PO; +MAGNESIUM400 MG PO; +MELATONIN5 M5 PO; +MELOXICAM7.5 MG PO; +PREVNAR 20 SYR0.5 ML IM; +PROTONIX40 MG PO; +THEOPHYLLINE300 M2 PO; +TRELEGY ELLIPT1 EACH INH; +VITAMIN D250 MC1 PO; +VITAMIN D3125 MC1 PO
[2025-09-28] MEDS ORDERED: Lopressor25 MG PO (22:21)
[2025-09-28] MEDS ORDERED: PANTOPRAZOLE SO40 MG PO (22:21)
[2025-09-28 22:33] LABS: BASO # 0.0 10*3/uL (0.0-0.1); BASO % 0.2 % (0.0-1.0); EOS # 0.6 10*3/uL (0.0-0.4); EOS % 5.7 % (1.0-4.0); MEAN CELL VOLUME 105.8 fl (80.0-94.0); MEAN CORPUSCULAR HGB 31.4 pg (27.0-31.0); MEAN PLATELET VOLUME 9.1 fl (9.6-12.3); MONO # 1.2 10*3/uL (0.1-1.0); MONO % 11.4 % (3.0-9.0); NEUT # 7.0 10*3/uL (2.3-7.9); NEUT % 66.8 % (47.0-73.0); NUCLEATED RED BLOOD CELL 0.0 % (0.0-0.0); NUCLEATED RED BLOOD CELL 0.0 10*3/uL (0.0-0.0); PLATELET COUNT AUTOMATED 182 10*3/uL (130-400); RED CELL DISTRI WIDTH 14.8 % (0-14.5)
[2025-09-28 22:57] LABS: BUN 22 mg/dl (9-23)
[2025-09-28 23:06] LABS: BILIRUBIN Negative (Negative); BLOOD Negative (Negative); CLARITY Clear (Clear); COLOR Yellow (Yellow); KETONE Negative (Negative); LEUKO ESTERASE Negative (Negative); NITRITE Negative (Negative); PH 6.0 (4.5-8.0); SPECIFIC GRAVITY >= 1.030 (1.001-1.030); UROBILINOGEN 1.0 E.U./dl (0.0-1.0)
[2025-09-28 23:21] LABS: RBC 0-2 rbc/hpf (0-2); WBC 0-2 wbc/hpf (0-5)
== END 2025-09-28 23:37 | disposition home or self-care (01) ==
LOC: ED 21:33
PROVIDERS: Nurse Practitioner Family
DX: R50.9 Fever, unspecified (principal); F41.9 Anxiety disorder, unspecified; J44.9 Chronic obstructive pulmonary disease, unspecified; Z87.891 Personal history of nicotine dependence; Z98.890 Other specified postprocedural states; Z88.5 Allergy status to narcotic agent